=== PATIENT | male | born 1985 | race Caucasian/White ===

== ENCOUNTER 2022-04-04 20:45 | Emergency (ER) | payer OTHER ==
[2022-04-04 20:53] VITALS: BMI 28.7
[2022-04-04] MEDS ORDERED: FAMOTIDINE 10 MG TABLET PO ONE (21:28)
[2022-04-04] MEDS ORDERED: MAG HYDROX/AL HYDROX/SIMETH 30 ML UNIT-DOSE CUP PO ONE (21:28)
[2022-04-04] MEDS ORDERED: LIDOCAINE VISCOUS 2% ORAL/TOP 15 ML UNIT-DOSE CUP MM ONE (21:28)
[2022-04-04] MEDS ORDERED: FAMOTIDINE 20 MG TABLET ONE (21:50)
[2022-04-04] MEDS ORDERED: LIDOCAINE VISCOUS 2% ORAL/TOP 15 ML UNIT-DOSE CUP ONE (21:50)
[2022-04-04] MEDS ORDERED: MAG HYDROX/AL HYDROX/SIMETH 30 ML UNIT-DOSE CUP ONE (21:51)
[2022-04-04 22:16] LABS: BASO % 0.2 % (0-2.0); EOS % 0.3 % (0-4.5); HEMATOCRIT 47.2 % (35.4-49); HEMOGLOBIN 16.1 GM/dL (11.7-16.9); MCH 31.7 pg (25.7-33.7); MEAN CELL VOLUME 93.3 fl (80-96); MEAN PLT VOLUME 8.7 fl (7.5-11.1); MONO % 5.4 % (3.8-10.2); NEUT % 87.1 % (42.8-82.8); PLATELET COUNT 176 10^3/uL (134-434); RBC 5.06 M/mm3 (4.00-5.60); RDW 13.1 % (11.9-15.9); WHITE BLOOD COUNT 9.3 K/mm3 (4.0-10.0)
[2022-04-04 22:40] LABS: CALCIUM 9.3 mg/dL (8.5-10.1)
[2022-04-04 22:41] LABS: ALBUMIN 3.9 g/dl (3.4-5.0); BLOOD UREA NITROGEN 7.8 mg/dL (7-18)
[2022-04-04 22:44] LABS: CREATININE 0.9 mg/dL (0.55-1.3)
[2022-04-04 22:45] LABS: TOT PROT 7.2 g/dl (6.4-8.2)
[2022-04-04 22:46] LABS: BILIRUBIN,TOTAL 1.3 mg/dL (0.2-1)
[2022-04-05] MEDS ORDERED: SODIUM CHLORIDE 0.9% 500 ML INFUS.BAG IV ONE (00:29)
[2022-04-05 01:30] VITALS: BP 126/82; PULSE 78; TEMP 98.5
== END 2022-04-05 01:39 | disposition home or self-care (01) ==
LOC: JER 20:45
DX: K80.20 Calculus of gallbladder without cholecystitis without obstruction (principal); K76.0 Fatty (change of) liver, not elsewhere classified
CPT/HCPCS: 0241U-QW; 36415; 71046-TC-FY; 76705-TC; 80053; 83690; 84484; 85025; 93005; 93010; 99285-25